=== PATIENT | female | born 1960 | race Two or more races ===

== ENCOUNTER → 2018-05-13 | Outpatient (CLI) | payer OTHER ==
--- NOTE | 2018-05-14 08:05 | RAD ---
DATE: 05/13/2018 3:00 PM EXAM: DIGITAL DIAGNOSTIC BILATERAL HISTORY: routine diagnostic evaluation. COMPARISON: 08/24/2015 Bilateral full field craniocaudal and mediolateral oblique images were obtained using digital technique. In addition right LM and left laterally exaggerated CC images were obtained. This study was interpreted with the benefit of Computerized Aided Detection (CAD ). Breast Density: The breast parenchyma is primarily fatty replaced. Breast parenchyma level density A. FINDINGS: Benign calcifications are present. Subtle parenchymal changes from left lumpectomy are seen. No suspicious masses, microcalcifications or architectural distortion is present to suggest malignancy in either breast. The visualized axillae are unremarkable. IMPRESSION: No mammographic evidence of malignancy. BI-RADS CATEGORY: 2 BENIGN FINDING(S) RECOMMENDED FOLLOW-UP: 12M 12 MONTH FOLLOW-UP Annual screening mammography is recommended, unless clinically indicated sooner based on symptoms or change in physical exam. PQRS compliance statement: Patient information was entered into a reminder system with a target due date 05/15/2019 for the next mammogram. Mammography is a sensitive method for finding small breast cancers, but it does not detect them all and is not a substitute for careful clinical examination. A negative mammogram does not negate a clinically suspicious finding and should not result in delay in biopsying a clinically suspicious abnormality. "Our facility is accredited by the [employer] Mammography Program." [email or web address]
== END | disposition home or self-care (01) ==
LOC: MAMMO 12:49
PROVIDERS: ATTEND Internal Medicine
DX: R92.8 Other abnormal and inconclusive findings on diagnostic imaging of breast (principal); Z85.3 Personal history of malignant neoplasm of breast
CPT/HCPCS: 77066